=== PATIENT | female | born 1980 | race Caucasian/White ===

== ENCOUNTER 2017-04-23 07:18 | Emergency (ER) | payer MEDICAID, OTHER ==
[~2017-04-23] VITALS: Ht 185.4 cm; Wt 89.8 kg
--- NOTE | 2017-04-23 07:57 | ED Upper Extremity ---
General Chief Complaint: Upper Extremity Stated Complaint: RIGHT HAND PAIN Source: patient History of Present Illness Date Seen by Provider: Apr 23, 2017 Time Seen by Provider: 07:57 Initial Comments C/O PAIN TO RIGHT THUMB X 1 WEEK PT CLAIMS NO KNOWN INJURY NO PARESTHESIAS OR MOTOR DEFICITS NO HISTORY OF SIMILAR PT SEEN AT URGENT CARE IN [place] 1 WEEK AGO AND WAS STARTED ON MELOXICAM. NO XRAYS DONE.--NO IMPROVEMENT, SO CAME HERE HAS NOT ATTEMPTED TO FOLLOW UP WITH PCP FOR THIS PROBLEM PT HAD LEFT SHOULDER SURGERY 03/14/[address] KONG" AT [facility]. HAS FOLLOW UP APPOINTMENT TOMORROW PT STATES SHE IS OUT OF HER "PERCOCET 10'S" X 2 WEEKS PCP: [facility] [place] Allergies and Home Medications Allergies Coded Allergies: No Known Drug Allergies (Unverified , 04/23/17) Home Medications Hydrocodone Bit/Acetaminophen 1 Tab Tab, 1 EACH PO Q4H, #15 Prescribed by: IGNACIA FORD on 04/23/17 0831 [Keppra] , (Reported) [Tegretol] , (Reported) Constitutional: no symptoms reported Musculoskeletal: see HPI Skin: no symptoms reported Psychiatric/Neurological: No Symptoms Reported Past Zwjzmdd-Gxobft-Crywrq Hx Patient Social History Alcohol Use: Denies Use Recreational Drug Use: No Smoking Status: Current Everyday Smoker Recent Foreign Travel: No Contact w/Someone Who Travel: No Surgeries History of Surgeries: Yes (REMOVAL OF "BRAIN TUMOR"--PT STATES WAS FROM ENCEPHALITIS; LEFT SHOULDER SURGERY) Surgeries: Appendectomy, Neurological, Orthopedic Respiratory History of Respiratory Disorde: No Cardiovascular History of Cardiac Disorders: No Neurological History of Neurological Disord: Yes (ENCEPHALITIS AGE 10 WITH BRAIN SURGERY TO REMOVE "TUMOR" --PT STATES WAS ACTUALLY FROM ENCEHPALITIS) Neurological Disorders: Seizure Disorder Genitourinary History of Genitourinary Disor: No Gastrointestinal History of Gastrointestinal Di: No Musculoskeletal History of Musculoskeletal Dis: Yes (LEFT SHOULDER SURGERY) Endocrine History of Endocrine Disorders: No HEENT History of HEENT Disorders: No Cancer History of Cancer: No Psychosocial History of Psychiatric Problem: No Integumentary History of Skin or Integumenta: No Blood Transfusions History of Blood Disorders: No Physical Exam Vital Signs Vital Sign - Last 12Hours 04/23/17 07:46 Temp 98.0 Pulse 80 Resp 18 B/P (MAP) 98/72 (81) Pulse Ox 97 Capillary Refill : General Appearance: WD/WN, no apparent distress Elbow/Forearm: normal inspection Wrist: Yes normal inspection Hand: Right (THUMB), bone tenderness, limited ROM, soft tissue tenderness Neurologic/Tendon: normal sensation, normal motor functions, normal tendon functions 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, no motor/sensory deficits, alert, normal mood/affect, oriented x 3 Skin: normal color, warm/dry Splinting and Joint Reduction : Splint Application: Finger Progress/Results/Core Measures Results/Orders My Orders Orders - IGNACIA FORD DO Hand, Right, 3 Views (04/23/17 07:59) Splint Application Finger (04/23/17 08:18) Vital Signs/I&O Vital Sign - Last 12Hours 04/23/17 04/23/17 07:46 08:35 Temp 98.0 98.0 Pulse 80 80 Resp 18 18 B/P (MAP) 98/72 (81) Pulse Ox 97 97 Diagnostic Imaging Comments XRAYS RIGHT HAND--NON-DISPLACED FX DISTAL PHALANX OF THUMB, PER RADIOLOGIST REPORT @ 0820 Reviewed: Reviewed by Me Departure Impression Impression: Primary Impression: Fracture of thumb, right, closed Disposition: 01 HOME, SELF-CARE Condition: Stable Departure-Patient Inst. Referrals: MARY WU,LOCAL PHYSICIAN (PCP) Primary Care Physician Patient Instructions: [id number], Finger Fracture (DC), SPLINT CARE Add. Discharge Instructions: ICE TO AREA AT 20 MINUTE INTERVALS WEAR SPLINT AT ALL TIMES CONTINUE MELOXICAM FOLLOW UP WITH DR. WU IN 1 WEEK FOR FURTHER CARE All discharge instructions reviewed with patient and/or family. Voiced understanding. Scripts Hydrocodone Bit/Acetaminophen (Hydrocodone/Acetaminophen 5/325mg Tablet) 1 Tab Tab 1 EACH PO Q4H, #15 TAB Prov: IGNACIA FORD DO 04/23/17 IGNACIA FORD DO Apr 23, 2017 07:57
[2017-04-23] MEDS ORDERED: TEGRETOL (08:00)
[2017-04-23] MEDS ORDERED: KEPPRA (08:00)
--- NOTE | 2017-04-23 08:15 | Diagnostic Imaging Report ---
INDICATION: Pain in the right first digit for 1-1/2 weeks. TIME OF EXAM: 8:06 a.m. Three views of the right hand were obtained. There is a lucency identified at the base of the distal phalanx of the thumb, suspicious for a nondisplaced fracture. This is only seen on one view. Proximal phalanx is intact. The first metacarpal is intact. No other abnormalities are identified. IMPRESSION: Findings suggestive of a nondisplaced fracture involving the distal phalanx of the thumb. Dictated by: Dictated on workstation # [id number]
[2017-04-23] MEDS ORDERED: TRAM-42 PO (08:22)
[2017-04-23] MEDS ORDERED: ACHD5005 PO (08:31)
[2017-04-23 08:35] VITALS: BP 98/72
== END 2017-04-23 08:35 | disposition home or self-care (01) ==
LOC: ER 07:21
DX: S62.524A Nondisplaced fracture of distal phalanx of right thumb, initial encounter for closed fracture (principal); G40.909 Epilepsy, unspecified, not intractable, without status epilepticus; F17.210 Nicotine dependence, cigarettes, uncomplicated; Z90.49 Acquired absence of other specified parts of digestive tract; Z98.890 Other specified postprocedural states; X58.XXXA Exposure to other specified factors, initial encounter
CPT/HCPCS: 29130; 73130

== ENCOUNTER 2017-04-29 06:59 | Emergency (ER) | payer MEDICAID ==
[~2017-04-29] VITALS: Ht 172.7 cm; Wt 77.1 kg
[~2017-04-29 06:59] MED LIST: ACHD5005 PO; KEPPRA; TEGRETOL; TRAM-42 PO
[2017-04-29] MEDS ORDERED: ORPHENADRINE 60 MG/2 ML (NORFLEX) AMP IM ONE (07:15)
[2017-04-29] MEDS ORDERED: KETOROLAC 60 MG/2 ML VIAL IM ONE (07:15)
--- NOTE | 2017-04-29 07:27 | ED Back Pain ---
General Chief Complaint: Back Problems Stated Complaint: L SIDE BACK PAIN Nursing Triage Note: c/o left upper back pain. Onset 0600 this morning after standing up and twisting. Nursing Sepsis Screen: No Definite Risk Source of Information: Patient Exam Limitations: No Limitations History of Present Illness Date Seen by Provider: Apr 29, 2017 Time Seen by Provider: 07:00 Initial Comments This 36-year-old young lady presents to the emergency room with sudden onset of pain in the left upper back medial to the scapula. It started upon standing from a sitting position. She had left shoulder surgery on March 14. She took hydrocodone this morning. This was her last dose from a prescription she received for a thumb fracture on April 23. Allergies and Home Medications Allergies Coded Allergies: No Known Drug Allergies (Unverified , 04/23/17) Home Medications Hydrocodone Bit/Acetaminophen 1 Tab Tab, 1 EACH PO Q4H, #15 Prescribed by: IGNACIA FORD on 04/23/17 0831 Hydrocodone/Acetaminophen 1 Each Tablet, 1 EACH PO QID PRN for PAIN-MODERATE TO SEVERE, #10 Prescribed by: CAROLINE PAYNE on 04/29/17 0803 [Keppra] , (Reported) [Tegretol] , (Reported) Constitutional: no symptoms reported EENTM: no symptoms reported Respiratory: no symptoms reported Cardiovascular: no symptoms reported Gastrointestinal: no symptoms reported Genitourinary: no symptoms reported : No Control/STD Prophylaxis: Other (hysterectomy) Musculoskeletal: see HPI Skin: no symptoms reported Psychiatric/Neurological: No Symptoms Reported Past Xmlusiz-Quwygt-Yowjyc Hx Patient Social History Recent Foreign Travel: No Contact w/Someone Who Travel: No Recent Infectious Disease Expo: No Surgeries History of Surgeries: Yes Surgeries: Appendectomy, Neurological, Orthopedic Respiratory History of Respiratory Disorde: No Cardiovascular History of Cardiac Disorders: No Neurological History of Neurological Disord: Yes Neurological Disorders: Seizure Disorder 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 Genitourinary History of Genitourinary Disor: No Gastrointestinal History of Gastrointestinal Di: No Musculoskeletal History of Musculoskeletal Dis: Yes (LEFT SHOULDER SURGERY) Musculoskeletal Disorders: Fractures (right thumb) Endocrine History of Endocrine Disorders: No HEENT History of HEENT Disorders: No Cancer History of Cancer: No Cancer: Ovarian Psychosocial History of Psychiatric Problem: No Integumentary History of Skin or Integumenta: No Blood Transfusions History of Blood Disorders: No Physical Exam Vital Signs Vital Sign - Last 12Hours 04/29/17 07:16 Temp 98.1 Pulse 86 Resp 16 B/P (MAP) 145/96 (112) Pulse Ox 96 Capillary Refill : Less Than 3 Seconds General Appearance: No Apparent Distress, Moderate Distress (crying) HEENT: PERRL/EOMI, Normal ENT Inspection Cardiovascular: Regular Rate, Rhythm, No Edema, No Murmur Respiratory: Lungs Clear, Normal Breath Sounds, No Accessory Muscle Use, No Respiratory Distress Back: Other (tenderness in the musculature medial to the left scapula) Extremity: Normal Inspection, No Pedal Edema, Other (splint on the right hand/ wrist. 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 Skin: Normal Color, Warm/Dry Progress/Results/Core Measures Results/Orders Lab Results Laboratory Tests Test 04/29/17 07:30 Range/Units Urine Color YELLOW Urine Clarity SLIGHTLY CLOUDY Urine pH 5 5-9 Urine Specific [place] 1.020 1.016-1.022 Urine Protein NEGATIVE NEGATIVE Urine Glucose (UA) NEGATIVE NEGATIVE Urine Ketones NEGATIVE NEGATIVE Urine Nitrite NEGATIVE NEGATIVE Urine Bilirubin NEGATIVE NEGATIVE Urine Urobilinogen NORMAL NORMAL MG/DL Urine Leukocyte Esterase 1+ H NEGATIVE Urine RBC (Auto) 1+ H NEGATIVE Urine RBC RARE /HPF Urine WBC RARE /HPF Urine Squamous Epithelial Cells TNTC H /HPF Urine Crystals NONE /LPF Urine Bacteria NEGATIVE /HPF Urine Casts NONE /LPF Urine Mucus NEGATIVE /LPF Urine Culture Indicated NO My Orders Orders - CAROLINE SAINZ MD Ua Culture If Indicated (04/29/17 07:01) Ketorolac Injection (Toradol Injection) (04/29/17 07:15) Orphenadrine Injection (Norflex Injectio (04/29/17 07:15) Oxycodone/Apap 5/325mg Tablet (Percocet (04/29/17 08:00) Prednisone Tablet (Deltasone Tablet) (04/29/17 08:00) Fentanyl Injection (Sublimaze Injection (04/29/17 08:00) Medications Given in ED Current Medications Medications Dose Ordered Sig/Abi Route Start Time Stop Time Status Last Admin Dose Admin Fentanyl Citrate 100 mcg ONCE ONCE IM 04/29/17 08:00 04/29/17 08:01 DC 04/29/17 08:04 100 MCG Ketorolac Tromethamine 60 mg ONCE ONCE IM 04/29/17 07:15 04/29/17 07:16 DC 04/29/17 07:28 60 MG Orphenadrine Citrate 60 mg ONCE ONCE IM 04/29/17 07:15 04/29/17 07:16 DC 04/29/17 07:27 60 MG Oxycodone/ Acetaminophen 1 tab ONCE ONCE PO 04/29/17 08:00 04/29/17 08:01 DC 04/29/17 08:05 1 TAB Prednisone 40 mg ONCE ONCE PO 04/29/17 08:00 04/29/17 08:01 DC 04/29/17 08:07 40 MG Vital Signs/I&O Vital Sign - Last 12Hours 04/29/17 04/29/17 04/29/17 04/29/17 07:16 07:27 07:28 08:04 Temp 98.1 98.1 98.1 98.1 Pulse 86 Resp 16 B/P (MAP) 145/96 (112) Pulse Ox 96 04/29/17 08:05 Temp 98.1 Blood Pressure Mean: 112 Progress Note #1: Time: 07:27 Progress Note Patient received Toradol and Norflex injections. Progress Note #2: Time: 07:58 Progress Note Patient is getting no relief from Toradol and Norflex. For additional treatment of pain she is being given a fentanyl injection and a Percocet tablet. She's also being given a single dose of steroids. Further use of steroids is discouraged due to the right thumb fracture. Progress Note #3: Time: 08:54 Progress Note Patient had good improvement in symptoms and is now resting comfortably. Departure Impression Impression: Primary Impression: Muscle spasm of back Additional Impression: Upper back pain Disposition: 01 HOME, SELF-CARE Condition: Improved Departure-Patient Inst. Referrals: NO,LOCAL PHYSICIAN (PCP/Family) Primary Care Physician Patient Instructions: Muscle Spasms (DC) Add. Discharge Instructions: Drink plenty of clear liquids. For primary pain control use ibuprofen up to 600 mg every 6 hours as needed over the next 3 days. Discuss further use of ibuprofen with your orthopedic doctor at your follow-up appointment. Use of ibuprofen is sometimes discouraged with fractures as it may delay bone healing. Add hydrocodone for pain not controlled by ibuprofen. You may use gentle heat and/or ice in 20 minute intervals to help relax the muscle. You may use njhx-bjx-iacspeb products such as Biofreeze or Icy Hot as well. Return to care if symptoms worsen. All discharge instructions reviewed with patient and/or family. Voiced understanding. Scripts Hydrocodone/Acetaminophen (Hydrocodone-Acetamin 5-325 mg) 1 Each Tablet 1 EACH PO QID Y for PAIN-MODERATE TO SEVERE, #10 TAB Prov: CAROLINE SAINZ MD 04/29/17 CAROLINE SAINZ MD Apr 29, 2017 07:27
[2017-04-29 07:56] LABS: BILIRUBIN,URINE NEGATIVE (NEGATIVE); CLARITY,URINE SLIGHTLY CLOUDY; COLOR,URINE YELLOW; GLUCOSE, URINE (UA) NEGATIVE (NEGATIVE); KETONES,URINE NEGATIVE (NEGATIVE); LEUKOCYTE ESTERASE ,URINE 1+ (NEGATIVE); NITRITE,URINE NEGATIVE (NEGATIVE); PH,URINE 5 (5-9); PROTEIN,URINE NEGATIVE (NEGATIVE); UROBILINOGEN,URINE NORMAL (NORMAL)
[2017-04-29] MEDS ORDERED: fentaNYL INJECTION 100 MCG/2 ML AMP IM ONE (08:00)
[2017-04-29] MEDS ORDERED: predniSONE 20 MG TAB PO ONE (08:00)
[2017-04-29] MEDS ORDERED: oxyCODONE/APAP 5/325MG (PERCOCET 5) TABLET PO ONE (08:00)
[2017-04-29 08:03] LABS: BACTERIA,URINE NEGATIVE /HPF; RBC,URINE RARE /HPF; SQUAMOUS EPITHELIAL CELL,UR TNTC /HPF; WBC,URINE RARE /HPF
[2017-04-29] MEDS ORDERED: HYDR-3812 PO (08:03)
[2017-04-29 08:53] VITALS: BP 142/90
== END 2017-04-29 08:53 | disposition home or self-care (01) ==
LOC: EDUNIT# 06:59 → ER 07:00
DX: M62.830 Muscle spasm of back (principal); M54.6 Pain in thoracic spine; G40.909 Epilepsy, unspecified, not intractable, without status epilepticus; Z85.43 Personal history of malignant neoplasm of ovary; Z90.710 Acquired absence of both cervix and uterus; Z90.49 Acquired absence of other specified parts of digestive tract; X50.1XXA Overexertion from prolonged static or awkward postures, initial encounter
CPT/HCPCS: 81000; 96372; 99284

== ENCOUNTER 2017-07-19 13:28 | Emergency (ER) | payer MEDICAID ==
[~2017-07-19] VITALS: Ht 185.4 cm; Wt 92.5 kg
[~2017-07-19 13:28] MED LIST changes: +HYDR-3812 PO
[2017-07-19 14:14] LABS: BASOPHILS % (AUTO) 0 % (0-10); EOSINOPHILS # (AUTO) 0.3 10^3/uL (0.0-0.3); EOSINOPHILS % (AUTO) 4 % (0-10); HEMATOCRIT 41 % (35-52); HEMOGLOBIN 13.7 G/DL (11.5-16.0); LYMPHOCYTES # (AUTO) 2.5 X 10^3 (1.0-4.0); LYMPHOCYTES % (AUTO) 35 % (12-44); MEAN CORPUSCULAR HEMOGLOBIN 31 PG (25-34); MEAN CORPUSCULAR HGB CONC 34 G/DL (32-36); MEAN CORPUSCULAR VOLUME 93 FL (80-99); MEAN PLATELET VOLUME 10.1 FL (7.4-10.4); MONOCYTES # (AUTO) 0.7 X 10^3 (0.0-1.0); MONOCYTES % (AUTO) 10 % (0-12); NEUTROPHILS # (AUTO) 3.6 X 10^3 (1.8-7.8); NEUTROPHILS % (AUTO) 51 % (42-75); PLATELET COUNT 302 10^3/uL (130-400); RED BLOOD COUNT 4.42 10^6/uL (4.35-5.85); RED CELL DISTRIBUTION WIDTH 14.4 % (10.0-14.5); WHITE BLOOD COUNT 7.1 10^3/uL (4.3-11.0)
[2017-07-19 14:28] LABS: ALANINE AMINOTRANSFERASE 19 U/L (0-55); ALBUMIN 4.5 GM/DL (3.2-4.5); ALKALINE PHOSPHATASE 117 U/L (40-136); BILIRUBIN,TOTAL 0.3 MG/DL (0.1-1.0); BUN/CREATININE RATIO 20; CALCIUM 9.8 MG/DL (8.5-10.1); CARBON DIOXIDE 25 MMOL/L (21-32); CHLORIDE 107 MMOL/L (98-107); CREATININE SERUM 0.83 MG/DL (0.60-1.30); GFR ESTIMATED > 60; GLUCOSE 102 MG/DL (70-105); POTASSIUM 4.4 MMOL/L (3.6-5.0); SODIUM 141 MMOL/L (135-145)
--- NOTE | 2017-07-19 14:28 | ED Neurological Problem ---
General Chief Complaint: Neurological Problems Stated Complaint: SEIZURE LIKE ACTIVITY Nursing Triage Note: PT TO ROOM 8 PT CO OF INCREASED IN SEIZURES, PAST COUPLE DAYS, HAS MIGRAINE TORO, AND INJURED L SHOULDER DURING SEIZURE. Nursing Sepsis Screen: No Definite Risk History of Present Illness Date Seen by Provider: Jul 19, 2017 Time Seen by Provider: 14:00 Initial Comments Patient is a 37-year-old female who presents to the emergency room with complaints of increased seizures the last 3 days, pain behind her left eye, and left shoulder pain. She reports history of seizures and has had one seizure each day for the last 3 days and reports waking up on her left shoulder today which she has recently had an operation on. She takes Keppra and Tegretol for her seizures and reports not missing any doses but doesn't need a refill on both of these medications. Associated Symptoms: denies symptoms Allergies and Home Medications Allergies Coded Allergies: No Known Drug Allergies (Unverified , 04/23/17) Patient Home Medication List Home Medication List Reviewed: Yes Review of Systems Constitutional: no symptoms reported, see HPI Eyes: No Symptoms Reported, See HPI Ears, Nose, Mouth, Throat: no symptoms reported, see HPI Respiratory: no symptoms reported, see HPI Cardiovascular: no symptoms reported, see HPI Gastrointestinal: no symptoms reported, see HPI Genitourinary: no symptoms reported, see HPI Musculoskeletal: joint pain Skin: no symptoms reported, see HPI Psychiatric/Neurological: No Symptoms Reported Endocrine: No Symptoms Reported, See HPI Hematologic/Lymphatic: No Symptoms Reported, See HPI Past Bqisuci-Zgbjfp-Jmueao Hx Patient Social History Alcohol Use: Denies Use Recreational Drug Use: Yes (POT) Drug of Choice: marijuana Smoking Status: Current Everyday Smoker Type Used: Cigarettes Recent Foreign Travel: No Contact w/Someone Who Travel: No Recent Infectious Disease Expo: No Physical Abuse: No Sexual Abuse: No Past Medical History Surgeries: Yes Appendectomy, Hysterectomy, Neurological, Orthopedic Respiratory: No Cardiac: No Neurological: Yes 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, 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 Genitourinary: No Gastrointestinal: No Musculoskeletal: Yes (LEFT SHOULDER SURGERY) Fractures Endocrine: No HEENT: No Cancer: No Ovarian Psychosocial: No Nursing Suicide Risk Score: 0 Integumentary: No Blood Disorders: No Physical Exam Vital Signs Vital Signs - First Documented 07/19/17 13:45 Temp 97.4 Pulse 77 Resp 18 B/P (MAP) 138/96 (110) Pulse Ox 95 Capillary Refill : Less Than 3 Seconds General Appearance: WD/WN, no apparent distress HEENT: PERRL/EOMI, normal ENT inspection Neck: non-tender, full range of motion Respiratory: chest non-tender, lungs clear, normal breath sounds, no respiratory distress, no accessory muscle use Cardiovascular: normal peripheral pulses, regular rate, rhythm, no edema, no gallop, no JVD, no murmur Gastrointestinal: normal bowel sounds, non tender, soft, no organomegaly, no pulsatile mass Back: normal inspection, no CVA tenderness, no vertebral tenderness Extremities: non-tender, normal inspection, no pedal edema, no calf tenderness , other (Pain with range of motion and the left shoulder.) Neurologic/Psychiatric: no motor/sensory deficits, alert, normal mood/affect, oriented x 3 Crainal Nerves: normal hearing, normal speech Coordination/Gait: normal finger to nose, normal gait Motor/Sensory: no motor deficit, no sensory deficit, no pronator drift Skin: normal color, warm/dry Progress/Results/Core Measures Lab Results Laboratory Tests Test 07/19/17 13:50 07/19/17 16:18 Range/Units White Blood Count 7.1 4.3-11.0 10^3/uL Red Blood Count 4.42 4.35-5.85 10^6/uL Hemoglobin 13.7 11.5-16.0 G/DL Hematocrit 41 35-52 % Mean Corpuscular Volume 93 80-99 FL Mean Corpuscular Hemoglobin 31 25-34 PG Mean Corpuscular Hemoglobin Concent 34 32-36 G/DL Red Cell Distribution Width 14.4 10.0-14.5 % Platelet Count 302 130-400 10^3/uL Mean Platelet Volume 10.1 7.4-10.4 FL Neutrophils (%) (Auto) 51 42-75 % Lymphocytes (%) (Auto) 35 12-44 % Monocytes (%) (Auto) 10 0-12 % Eosinophils (%) (Auto) 4 0-10 % Basophils (%) (Auto) 0 0-10 % Neutrophils # (Auto) 3.6 1.8-7.8 X 10^3 Lymphocytes # (Auto) 2.5 1.0-4.0 X 10^3 Monocytes # (Auto) 0.7 0.0-1.0 X 10^3 Eosinophils # (Auto) 0.3 0.0-0.3 10^3/uL Basophils # (Auto) 0.0 0.0-0.1 10^3/uL Neutrophils % (Manual) 61 % Lymphocytes % (Manual) 32 % Monocytes % (Manual) 4 % Eosinophils % (Manual) 3 % Blood Morphology Comment NORMAL Sodium Level 141 135-145 MMOL/L Potassium Level 4.4 3.6-5.0 MMOL/L Chloride Level 107 98-107 MMOL/L Carbon Dioxide Level 25 21-32 MMOL/L Anion Gap 9 5-14 MMOL/L Blood Urea Nitrogen 17 7-18 MG/DL Creatinine 0.83 0.60-1.30 MG/DL Estimat Glomerular Filtration Rate > 60 BUN/Creatinine Ratio 20 Glucose Level 102 70-105 MG/DL Calcium Level 9.8 8.5-10.1 MG/DL Total Bilirubin 0.3 0.1-1.0 MG/DL Aspartate Amino Transf (AST/SGOT) 19 5-34 U/L Alanine Aminotransferase (ALT/SGPT) 19 0-55 U/L Alkaline Phosphatase 117 40-136 U/L Total Protein 8.0 6.4-8.2 GM/DL Albumin 4.5 3.2-4.5 GM/DL Serum Test, Qualitative NEGATIVE NEGATIVE Carbamazepine (Tegretol) Level 4.7 4.0-12.0 UG/ML Urine Color YELLOW Urine Clarity CLEAR Urine pH 5 5-9 Urine Specific [place] 1.020 1.016-1.022 Urine Protein NEGATIVE NEGATIVE Urine Glucose (UA) NEGATIVE NEGATIVE Urine Ketones NEGATIVE NEGATIVE Urine Nitrite NEGATIVE NEGATIVE Urine Bilirubin NEGATIVE NEGATIVE Urine Urobilinogen NORMAL NORMAL MG/DL Urine Leukocyte Esterase 1+ H NEGATIVE Urine RBC (Auto) NEGATIVE NEGATIVE Urine RBC 0-2 /HPF Urine WBC RARE /HPF Urine Squamous Epithelial Cells 0-2 /HPF Urine Crystals NONE /LPF Urine Bacteria TRACE /HPF Urine Casts NONE /LPF Urine Mucus SMALL H /LPF Urine Culture Indicated NO Urine Opiates Screen NEGATIVE NEGATIVE Urine Oxycodone Screen NEGATIVE NEGATIVE Urine Methadone Screen NEGATIVE NEGATIVE Urine Propoxyphene Screen NEGATIVE NEGATIVE Urine Barbiturates Screen NEGATIVE NEGATIVE Ur Tricyclic Antidepressants Screen NEGATIVE NEGATIVE Urine Phencyclidine Screen NEGATIVE NEGATIVE Urine Amphetamines Screen NEGATIVE NEGATIVE Urine Methamphetamines Screen NEGATIVE NEGATIVE Urine Benzodiazepines Screen NEGATIVE NEGATIVE Urine Cocaine Screen NEGATIVE NEGATIVE Urine Cannabinoids Screen POSITIVE H NEGATIVE My Orders Orders - KAMILAH HINES APRN Ct Head Wo (07/19/17 14:03) Shoulder, Left, 3 Views (07/19/17 14:03) Ua Culture If Indicated (07/19/17 14:03) Drug Screen Stat (Urine) (07/19/17 14:03) Carbamazepine (Tegretol) (07/19/17 14:03) Cbc And Manual Diff (07/19/17 14:03) Comprehensive Metabolic Panel (07/19/17 14:03) Hcg,Qualitative Serum (07/19/17 14:07) Ketorolac Injection (Toradol Injection) (07/19/17 15:00) Diphenhydramine Injection (Benadryl Inje (07/19/17 15:00) Ns Iv 1000 Ml (Sodium Chloride 0.9%) (07/19/17 15:00) Diphenhydramine Injection (Benadryl Inje (07/19/17 14:49) Ns Iv 1000 Ml (Sodium Chloride 0.9%) (07/19/17 14:49) Ketorolac Injection (Toradol Injection) (07/19/17 14:49) Acetaminophen Tablet (Tylenol Tablet) (07/19/17 17:00) Medications Given in ED Current Medications Medications Dose Ordered Sig/Abi Route Start Time Stop Time Status Last Admin Dose Admin Diphenhydramine HCl 25 mg ONCE ONCE IVP 07/19/17 15:00 07/19/17 15:01 DC 07/19/17 15:06 25 MG Ketorolac Tromethamine 30 mg ONCE ONCE IVP 07/19/17 15:00 07/19/17 15:01 DC 07/19/17 15:04 30 MG Vital Signs/I&O 07/19/17 13:45 Temp 97.4 Pulse 77 Resp 18 B/P (MAP) 138/96 (110) Pulse Ox 95 Blood Pressure Mean: 110 Progress Note : Progress Note On discharge from the emergency room patient refused Tylenol for her headache and she ripped out her IV, cursed at staff saying " I am fucking leaving" and stormed out of the emergency room refusing to sign discharge papers. Departure Impression Primary Impression: Seizure disorder Additional Impression: Headache Disposition: 01 HOME, SELF-CARE Condition: Stable Departure-Patient Inst. Decision time for Depature: 16:50 Referrals: NO,LOCAL PHYSICIAN (PCP/Family) Primary Care Physician Patient Instructions: Headache, Adult (DC), Seizures, Adult (DC) KAMILAH HINES APRN Jul 19, 2017 14:28
[2017-07-19 14:34] LABS: CARBAMAZEPINE (TEGRETOL) 4.7 UG/ML (4.0-12.0); EOSINOPHILS % (MANUAL) 3 %; LYMPHOCYTES % (MANUAL) 32 %; MONOCYTES % (MANUAL) 4 %; NEUTROPHILS % (MANUAL) 61 %; RBC MORPH NORMAL
--- NOTE | 2017-07-19 14:46 | Diagnostic Imaging Report ---
INDICATION: History of seizure, pain behind right eye. Noncontrast brain CT is performed. There is no previous study for comparison. There are encephalomalacic changes in the left frontal lobe which appear chronic. We do not have prior studies for comparison. There is no focal abnormality seen elsewhere in the brain parenchyma. The ventricles are normal in size. There is no subdural or epidural collection. There is no overt intraorbital mass. Bony structures demonstrate no acute abnormality. There is some thinning of the frontal cortex in the left frontal region, which may be due to chronic change or previous surgery. IMPRESSION: No acute intracranial process. Chronic of encephalomalacic changes in left frontal lobe as described above. Dictated by: Dictated on workstation # [id number]
[2017-07-19] MEDS ORDERED: NS IV 1000 ML 1,000 ML ONE (14:49)
[2017-07-19] MEDS ORDERED: KETOROLAC 30 MG/ML VIAL ONE (14:49)
[2017-07-19] MEDS ORDERED: diphenhydrAMINE 50 MG/ML INJ (BENADRYL) ONE (14:49)
[2017-07-19] MEDS ORDERED: NS IV 1000 ML 1,000 ML IV SCH (15:00)
[2017-07-19] MEDS ORDERED: diphenhydrAMINE 50 MG/ML INJ (BENADRYL) IVP ONE (15:00)
[2017-07-19] MEDS ORDERED: KETOROLAC 30 MG/ML VIAL IVP ONE (15:00)
--- NOTE | 2017-07-19 15:05 | Diagnostic Imaging Report ---
INDICATION: Left shoulder pain. AP, oblique, and transcapular views of left shoulder are obtained. No fracture or acute bony abnormality seen. There is no dislocation. Joint spaces are unremarkable. IMPRESSION: Negative left shoulder. Dictated by: Dictated on workstation # [id number]
[2017-07-19 16:27] LABS: BILIRUBIN,URINE NEGATIVE (NEGATIVE); CLARITY,URINE CLEAR; COLOR,URINE YELLOW; GLUCOSE, URINE (UA) NEGATIVE (NEGATIVE); KETONES,URINE NEGATIVE (NEGATIVE); LEUKOCYTE ESTERASE ,URINE 1+ (NEGATIVE); NITRITE,URINE NEGATIVE (NEGATIVE); PH,URINE 5 (5-9); PROTEIN,URINE NEGATIVE (NEGATIVE); UROBILINOGEN,URINE NORMAL (NORMAL)
[2017-07-19 16:37] LABS: RBC,URINE 0-2 /HPF
[2017-07-19 16:38] LABS: BACTERIA,URINE TRACE /HPF; SQUAMOUS EPITHELIAL CELL,UR 0-2 /HPF; WBC,URINE RARE /HPF
[2017-07-19 16:40] LABS: AMPHETAMINE SCREEN, URINE NEGATIVE (NEGATIVE); BARBITURATE SCREEN URINE NEGATIVE (NEGATIVE); BENZODIAZEPINES SCREEN URINE NEGATIVE (NEGATIVE); CANNABINOID SCREEN, URINE POSITIVE (NEGATIVE); COCAINE SCREEN URINE NEGATIVE (NEGATIVE); METHADONE STAT NEGATIVE (NEGATIVE); METHAMPHETAMINE SCREEN URINE S NEGATIVE (NEGATIVE); OPIATE SCREEN URINE NEGATIVE (NEGATIVE); OXYCODONE STAT NEGATIVE (NEGATIVE); PROPOXYPHENE STAT NEGATIVE (NEGATIVE); TRICYCLIC ANTIDEPRESSANTS SCRE NEGATIVE (NEGATIVE)
[2017-07-19 16:59] VITALS: BP 138/96
[2017-07-19] MEDS ORDERED: ACETAMINOPHEN 500 MG TAB (TYLENOL) PO ONE (17:00)
== END 2017-07-19 16:59 | disposition home or self-care (01) ==
LOC: EDUNIT# 13:28 → ER 13:30
DX: G40.909 Epilepsy, unspecified, not intractable, without status epilepticus (principal); R51 Headache; F12.10 Cannabis abuse, uncomplicated; F17.210 Nicotine dependence, cigarettes, uncomplicated; Z90.49 Acquired absence of other specified parts of digestive tract; Z90.710 Acquired absence of both cervix and uterus
CPT/HCPCS: 36415; 70450; 73030; 80053; 80156; 80306; 81000; 84703; 85007; 85027; 96361; 96374; 96375

== ENCOUNTER 2017-12-02 09:32 | Emergency (ER) | payer MEDICAID ==
[~2017-12-02] VITALS: Ht 185.4 cm; Wt 97.1 kg
--- OUTSIDE RECORDS SUMMARY | 2017-12-02 09:37 | XMS REPORT ---
Author Author LOUIS BAKER Organization [facility] Address [address] [place] [address] Care Team Providers Care Base Cloth Inspector Name Role Phone LOUIS BAKER Unavailable PROBLEMS Type Condition ICD9-CM Code [id number] Code Onset Dates Condition Status SNOMED Code Problem Seizure disorder G40.909 Active 387935053 Problem Moderate episode of recurrent major depressive disorder F33.1 Active 614535821 Problem Opioid withdrawal F11.23 Active [id number] Problem Opioid use disorder, moderate, dependence F11.20 Active [id number] ALLERGIES No Information ENCOUNTERS Encounter Location Date Diagnosis [facility] [id number] [place] [id number] July, Opioid use disorder, moderate, dependence F11.20 and Moderate episode of recurrent major depressive disorder F33.1 [facility] [id number] [place] [phone] Jun, [facility] [id number] [place] [phone] Jun, Opioid use disorder, moderate, dependence F11.20 ; Moderate episode of recurrent major depressive disorder F33.1 ; Seizure disorder G40.909 and Opioid withdrawal F11.23 IMMUNIZATIONS No Known Immunizations SOCIAL HISTORY Never Assessed REASON FOR VISIT ATS Brief PLAN OF CARE VITAL SIGNS MEDICATIONS No Known Medications RESULTS No Results PROCEDURES Procedure Date Ordered Result Body Site Alcohol and/or drug services July 29, 2017 INSTRUCTIONS MEDICATIONS ADMINISTERED No Known Medications MEDICAL (GENERAL) HISTORY Type Description Date Medical History seizure disorder; last seizure was 3 weeks ago. Pt had a brain tumor at age 10 and scar tissue causes sezures Medical History ovarian cancer at age 32; in remission Surgical History brain tumor 1990 Surgical History appendectomy 1994 Surgical History hysterectomy 2012 Surgical History left shoulder surgery 2016 Surgical History VNS replaced 2013 Surgical History VNS removed 2018 Hospitalization History surgeries only
--- OUTSIDE RECORDS SUMMARY | 2017-12-02 09:37 | XMS REPORT ---
Author Author LOUIS BAKER Organization [facility] Address [address] [place] [address] Care Team Providers Care Assistant Quality Manager Name Role Phone LOUIS BAKER Unavailable PROBLEMS Type Condition ICD9-CM Code [id number] Code Onset Dates Condition Status SNOMED Code Problem Seizure disorder G40.909 Active 328287046 Problem Moderate episode of recurrent major depressive disorder F33.1 Active 683243936 Problem Opioid withdrawal F11.23 Active 64782144 Problem Opioid use disorder, moderate, dependence F11.20 Active [id number] ALLERGIES No Known Allergies ENCOUNTERS Encounter Location Date Diagnosis [place] [address] [phone] July, Opioid use disorder, moderate, dependence F11.20 and Moderate episode of recurrent major depressive disorder F33.1 [place] [id number] [place] [id number] [place] [phone] Jun, [place] [address] [place] [id number] [place] [phone] Jun, Opioid use disorder, moderate, dependence F11.20 ; Moderate episode of recurrent major depressive disorder F33.1 ; Seizure disorder G40.909 and Opioid withdrawal F11.23 IMMUNIZATIONS Vaccine Route Administration Date Status ZOFRAN (IM) 2 MG/ML (PER 1 MG) 40 MG/20 ML IM Intramuscular July 29, 2017 Administered SOCIAL HISTORY Never Assessed REASON FOR VISIT MAT Assessment, COWS 9, pt was prescribed morphine and dilauded and had no issues but a couple years ago was given fentanyl IV after a seizure and thats when she started liking it PLAN OF CARE Activity Details Follow Up 1 Week Reason:MAT VITAL SIGNS Height 73 in 2017-07-29 Weight 206.3 lbs 2017-07-29 Temperature 98.2 degrees Fahrenheit 2017-07-29 Heart Rate 84 bpm 2017-07-29 Respiratory Rate 18 2017-07-29 BMI 27.22 kg/m2 2017-07-29 Blood pressure systolic 130 mmHg 2017-07-29 Blood pressure diastolic 86 mmHg 2017-07-29 MEDICATIONS Medication Instructions Dosage Frequency Start Date End Date Duration Status Clonidine HCl 0.1 MG Orally twice a day as needed for withdrawal symptoms 1 tablet Jun, 07 days Active Hydrocodone-Acetaminophen 5-325 MG Orally every 6 hrs 1 tablet as needed 6h Active Remeron 15 mg Orally Once a day 1 tablet at bedtime 24h Jun, day(s) Active Keppra 1000 MG Orally Twice a day 1 tablet 12h Active Zofran 4 MG Orally 3 times a day 1 tablet 8h Jun, days Active Tegretol 200 MG Orally Twice a day 1 tablet 12h Active RESULTS No Results PROCEDURES Procedure Date Ordered Result Body Site ZOFRAN (IM) 2 MG/ML (PER 1 MG) 40 MG/20 ML July 29, 2017 THER/PROPH/DIAG INJ, SC/IM July 29, 2017 INSTRUCTIONS MEDICATIONS ADMINISTERED No [...]
--- OUTSIDE RECORDS SUMMARY | 2017-12-02 09:37 | XMS REPORT ---
Author Author LOUIS BAKER Organization [facility] Address [address] [place] [address] Care Team Providers Care Chamber Worker Name Role Phone LOUIS BAKER Unavailable PROBLEMS Type Condition ICD9-CM Code [id number] Code Onset Dates Condition Status SNOMED Code Problem Seizure disorder G40.909 Active 883414786 Problem Moderate episode of recurrent major depressive disorder F33.1 Active 601603949 Problem Opioid withdrawal F11.23 Active 09520975 Problem Opioid use disorder, moderate, dependence F11.20 Active [id number] ALLERGIES No Known Allergies ENCOUNTERS Encounter Location Date Diagnosis [facility] [address] [place] [id number] [place] [phone] July, Opioid use disorder, moderate, dependence F11.20 and Moderate episode of recurrent major depressive disorder F33.1 [facility] [address] [place] [id number] [place] [phone] Jun, [facility] [address] [place] [id number] [place] [phone] Jun, Opioid use disorder, moderate, dependence F11.20 ; Moderate episode of recurrent major depressive disorder F33.1 ; Seizure disorder G40.909 and Opioid withdrawal F11.23 IMMUNIZATIONS No Known Immunizations SOCIAL HISTORY Never Assessed REASON FOR VISIT MAT F/U, pt reports not having opiates since before seeing us last saturday, pt reports she is very depressed PLAN OF CARE Activity Details Follow Up 2 Weeks Reason:MAT VITAL SIGNS Height 73 in 2017-08-05 Weight 214.4 lbs 2017-08-05 Temperature 98.7 degrees Fahrenheit 2017-08-05 Heart Rate 88 bpm 2017-08-05 Respiratory Rate 20 2017-08-05 BMI 28.28 kg/m2 2017-08-05 Blood pressure systolic 138 mmHg 2017-08-05 Blood pressure diastolic 86 mmHg 2017-08-05 MEDICATIONS Medication Instructions Dosage Frequency Start Date End Date Duration Status Remeron 15 mg Orally Once a day 1 tablet at bedtime 24h Jun, 30 day(s) Active Zofran 4 MG Orally 3 times a day 1 tablet 8h Jun, 07 days Active Hydrocodone-Acetaminophen 5-325 MG Orally every 6 hrs 1 tablet as needed 6h Not-Taking Tegretol 200 MG Orally Twice a day 1 tablet 12h Active Naltrexone HCl 50 mg Orally Once a day; start 0.5 tab daily x 4 days 1 tablet July, Sep, 30 day(s) Active Zoloft 50 mg Orally Once a day; increase to 2 tabs after 2 weeks 1 tablet July, 30 day(s) Active Clonidine HCl 0.1 MG Orally twice a day as needed for withdrawal symptoms 1 tablet Jun, 07 days Not-Taking Keppra 1000 MG Orally Twice a day 1 tablet 12h Active RESULTS Name Result Date Reference Range URINE DRUG SCREEN (IN HOUSE) 2017-08-05 Lot # [id number] Exp date 08/2018 Control + COCAINE neg AMPH neg MTD neg THC + OPIATE neg BENZO neg PCP neg BAR neg OXY neg MAMP neg BUP neg MDMA neg TCA n/a PROCEDURES Procedure Date Ordered Result Body Site DRUG TEST PRSMV DIR OPT OBS August 05, 2017 INSTRUCTIONS MEDICATIONS ADMINISTERED No Known Medications [...] VNS replaced 2013 Surgical History VNS removed 2017 Hospitalization History surgeries only
--- OUTSIDE RECORDS SUMMARY | 2017-12-02 09:38 | XMS REPORT | Continuity of Care Document ---
Demographics Preferred Language Unknown Marital Status Unknown Yarsanism Affiliation Unknown Race Unknown Ethnic Group Unknown Author Author [facility] Organization [facility] Address Unknown Phone Unavailable Allergies Active Description Code Type Severity Reaction Onset Reported/Identified Relationship to Patient Clinical Status Yes No Known Drug Allergies [id number] Drug Allergy Unknown N/A 04/23/2017 Medications There is no data. Problems Date Dx Coded Attending Type Code Diagnosis Diagnosed By 04/23/2017 IGNACIA FORD DO, Ot F17.210 NICOTINE DEPENDENCE, CIGARETTES, UNCOMPL 04/23/2017 IGNACIA FORD DO, Ot G40.909 EPILEPSY, UNSP, NOT INTRACTABLE, WITHOUT 04/23/2017 IGNACIA FORD DO Ot M79.644 PAIN IN RIGHT FINGER(S) 04/23/2017 IGNACIA FORD DO Ot S62.524A NONDISP FX OF DISTAL PHALANX OF RIGHT TH 04/23/2017 IGNACIA FORD DO Ot X58.XXXA EXPOSURE TO OTHER SPECIFIED FACTORS, INI 04/23/2017 IGNACIA FORD DO Ot Z90.49 ACQUIRED ABSENCE OF OTHER SPECIFIED PART 04/23/2017 IGNACIA FORD DO Ot Z98.890 OTHER SPECIFIED POSTPROCEDURAL STATES 04/29/2017 CAROLINE SAINZ MD, Ot G40.909 EPILEPSY, UNSP, NOT INTRACTABLE, WITHOUT 04/29/2017 CAROLINE SAINZ MD Ot M54.6 PAIN IN THORACIC SPINE 04/29/2017 CAROLINE SAINZ MD Ot M62.830 MUSCLE SPASM OF BACK 04/29/2017 CAROLINE SAINZ MD Ot X50.1XXA OVEREXERTION FROM PROLONGED STATIC OR AW 04/29/2017 CAROLINE SAINZ MD Ot Z85.43 PERSONAL HISTORY OF MALIGNANT NEOPLASM O 04/29/2017 CAROLINE SAINZ MD, Ot Z90.49 ACQUIRED ABSENCE OF OTHER SPECIFIED PART 04/29/2017 CAROLINE SAINZ MD Ot Z90.710 ACQUIRED ABSENCE OF BOTH CERVIX AND UTER 05/01/2017 BRUEGGEMANN MD, CAROLINE T Ot G40.909 EPILEPSY, UNSP, NOT INTRACTABLE, WITHOUT 05/01/2017 CAROLINE SAINZ MD Ot M54.6 PAIN IN THORACIC SPINE 05/01/2017 CAROLINE SAINZ MD Ot M62.830 MUSCLE SPASM OF BACK 05/01/2017 CAROLINE SAINZ MD Ot X50.1XXA OVEREXERTION FROM PROLONGED STATIC OR AW 05/01/2017 CAROLINE SAINZ MD Ot Z85.43 PERSONAL HISTORY OF MALIGNANT NEOPLASM O 05/01/2017 CAROLINE SAINZ MD Ot Z90.49 ACQUIRED ABSENCE OF OTHER SPECIFIED PART 05/01/2017 CAROLINE SAINZ MD Ot Z90.710 ACQUIRED ABSENCE OF BOTH CERVIX AND UTER 05/01/2017 CAROLINE SAINZ MD Ot G40.909 EPILEPSY, UNSP, NOT INTRACTABLE, WITHOUT 05/01/2017 CAROLINE SAINZ MD Ot M54.6 PAIN IN THORACIC SPINE 05/01/2017 CAROLINE SAINZ MD Ot M62.830 MUSCLE SPASM OF BACK 05/01/2017 CAROLINE SAINZ MD Ot X50.1XXA OVEREXERTION FROM PROLONGED STATIC OR AW 05/01/2017 CAROLINE SAINZ MD Ot Z85.43 PERSONAL HISTORY OF MALIGNANT NEOPLASM O 05/01/2017 CAROLINE SAINZ MD Ot Z90.49 ACQUIRED ABSENCE OF OTHER SPECIFIED PART 05/01/2017 CAROLINE SAINZ MD Ot Z90.710 ACQUIRED ABSENCE OF BOTH CERVIX AND UTER 07/19/2017 KAMILAH HINES INTERNAL CONTROL CONSULTANT Ot F12.10 CANNABIS ABUSE, UNCOMPLICATED 07/19/2017 KAMILAH HINES APRN Ot F17.210 NICOTINE DEPENDENCE, CIGARETTES, UNCOMPL 07/19/2017 KAMILAH HINES APRN Ot G40.909 EPILEPSY, UNSP, NOT INTRACTABLE, WITHOUT 07/19/2017 KAMILAH HINES APRN Ot R51 HEADACHE 07/19/2017 KAMILAH HINES APRN Ot R56.9 UNSPECIFIED CONVULSIONS 07/19/2017 KAMILAH HINES APRN Ot Z90.49 ACQUIRED ABSENCE OF OTHER SPECIFIED PART 07/19/2017 KAMILAH HINES APRN Ot Z90.710 ACQUIRED ABSENCE OF BOTH CERVIX AND UTER 07/22/2017 KAMILAH HINSE APRN Ot F12.10 CANNABIS ABUSE, UNCOMPLICATED 07/22/2017 KAMILAH HINES APRN Ot F17.210 NICOTINE DEPENDENCE, CIGARETTES, UNCOMPL 07/22/2017 KAMILAH HINES APRN Ot G40.909 EPILEPSY, UNSP, NOT INTRACTABLE, WITHOUT 07/22/2017 KAMILAH HINES APRN Ot R51 HEADACHE 07/22/2017 KAMILAH HINES APRN Ot R56.9 UNSPECIFIED CONVULSIONS 07/22/2017 KAMILAH HINES APRN Ot Z90.49 ACQUIRED ABSENCE OF OTHER SPECIFIED PART 07/22/2017 KAMILAH HINES APRN Ot Z90.710 ACQUIRED ABSENCE OF BOTH CERVIX AND UTER Procedures There is no data. Results Test Result Range Complete urinalysis with reflex to culture - 04/29/17 07:30 Urine color determination YELLOW NRG Urine clarity determination SLIGHTLY CLOUDY NRG Urine pH measurement by test strip 5 5-9 Specific gravity of urine by test strip 1.020 1.016- 1.022 Urine protein assay by test strip, semi-quantitative NEGATIVE NEGATIVE Urine glucose detection by automated test strip NEGATIVE NEGATIVE Erythrocytes detection in urine sediment by light microscopy 1+ NEGATIVE Urine ketones detection by automated test strip NEGATIVE NEGATIVE Urine nitrite detection by test strip NEGATIVE NEGATIVE Urine total bilirubin detection by test strip NEGATIVE NEGATIVE Urine urobilinogen measurement by automated test strip (mass/volume) NORMAL NORMAL Urine leukocyte esterase detection by dipstick 1+ NEGATIVE Automated urine sediment erythrocyte count by microscopy (number/high power field) RARE NRG Automated urine sediment leukocyte count by microscopy (number/high power field ) RARE NRG Bacteria detection in urine sediment by light microscopy NEGATIVE NRG Squamous epithelial cells detection in urine sediment by light microscopy TNTC NRG Crystals detection in urine sediment by light microscopy NONE NRG Casts detection in urine sediment by light microscopy NONE NRG Mucus detection in urine sediment by light microscopy NEGATIVE NRG Complete urinalysis with reflex to culture NO NRG Blood CBC with ordered manual differential panel - 07/19/17 13:50 Blood leukocytes automated count (number/volume) 7.1 10*3/uL 4.3-11.0 Blood erythrocytes automated count (number/volume) 4.42 10*6/uL 4.35-5.85 Venous blood hemoglobin measurement (mass/volume) 13.7 g/dL 11.5-16.0 Blood hematocrit (volume fraction) 41 % 35-52 Automated erythrocyte mean corpuscular volume 93 [foz_us] 80-99 Automated erythrocyte mean corpuscular hemoglobin (mass per erythrocyte) 31 pg 25-34 Automated erythrocyte mean corpuscular hemoglobin concentration measurement ( mass/volume) 34 g/dL 32-36 Automated erythrocyte distribution width ratio 14.4 % 10.0-14.5 Automated blood platelet count (count/volume) 302 10*3/uL 130-400 Automated blood platelet mean volume measurement 10.1 [foz_us] 7.4-10.4 Automated blood neutrophils/100 leukocytes 51 % 42-75 Automated blood lymphocytes/100 leukocytes 35 % 12-44 Blood monocytes/100 leukocytes 4 % NRG Automated blood eosinophils/100 leukocytes 4 % 0-10 Automated blood basophils/100 leukocytes 0 % 0-10 Blood neutrophils automated count (number/volume) 3.6 10*3 1.8-7.8 Blood lymphocytes automated count (number/volume) 2.5 10*3 1.0-4.0 Blood monocytes automated count (number/volume) 0.7 10*3 0.0-1.0 Automated eosinophil count 0.3 10*3/uL 0.0-0.3 Automated blood basophil count (count/volume) 0.0 10*3/uL 0.0-0.1 Manual blood segmented neutrophils/100 leukocytes 61 % NRG Manual blood lymphocytes/100 leukocytes 32 % NRG Manual eosinophils/100 leukocytes in nose 3 % NRG Blood erythrocyte morphology finding identification NORMAL NRG Serum or plasma choriogonadotropin ( test) detection - 07/19/17 13:50 Serum or plasma choriogonadotropin ( test) detection NEGATIVE NEGATIVE Comprehensive metabolic panel - 07/19/17 13:50 Serum or plasma sodium measurement (moles/volume) 141 mmol/L 135-145 Serum or plasma potassium measurement (moles/volume) 4.4 mmol/L 3.6-5.0 Serum or plasma chloride measurement (moles/volume) 107 mmol/L 98-107 Carbon dioxide 25 mmol/L 21-32 Serum or plasma anion gap determination (moles/volume) 9 mmol/L 5-14 Serum or plasma urea nitrogen measurement (mass/volume) 17 mg/dL 7-18 Serum or plasma creatinine measurement (mass/volume) 0.83 mg/dL 0.60-1.30 Serum or plasma urea nitrogen/creatinine mass ratio 20 NRG Serum or plasma creatinine measurement with calculation of estimated glomerular filtration rate > NRG Serum or plasma glucose measurement (mass/volume) 102 mg/dL 70-105 Serum or plasma calcium measurement (mass/volume) 9.8 mg/dL 8.5-10.1 Serum or plasma total bilirubin measurement (mass/volume) 0.3 mg/dL 0.1-1.0 Serum or plasma alkaline phosphatase measurement (enzymatic activity/volume) 117 U/L 40-136 Serum or plasma aspartate aminotransferase measurement (enzymatic activity/ volume) 19 U/L 5-34 Serum or plasma alanine aminotransferase measurement (enzymatic activity/volume ) 19 U/L 0-55 Serum or plasma protein measurement (mass/volume) 8.0 g/dL 6.4-8.2 Serum or plasma albumin measurement (mass/volume) 4.5 g/dL 3.2-4.5 Serum or plasma carbamazepine measurement (mass/volume) - 07/19/17 13:50 Serum or plasma carbamazepine measurement (mass/volume) 4.7 ug/mL 4.0-12.0 Complete urinalysis with reflex to culture - 07/19/17 16:18 Urine color determination YELLOW NRG Urine clarity determination CLEAR NRG Urine pH measurement by test strip 5 5-9 Specific gravity of urine by test strip 1.020 1.016- 1.022 Urine protein assay by test strip, semi-quantitative NEGATIVE NEGATIVE Urine glucose detection by automated test strip NEGATIVE NEGATIVE Erythrocytes detection in urine sediment by light microscopy NEGATIVE NEGATIVE Urine ketones detection by automated test strip NEGATIVE NEGATIVE Urine nitrite detection by test strip NEGATIVE NEGATIVE Urine total bilirubin detection by test strip NEGATIVE NEGATIVE Urine urobilinogen measurement by automated test strip (mass/volume) NORMAL NORMAL Urine leukocyte esterase detection by dipstick 1+ NEGATIVE Automated urine sediment erythrocyte count by microscopy (number/high power field) [HPF] NRG Automated urine sediment leukocyte count by microscopy (number/high power field ) RARE NRG Bacteria detection in urine sediment by light microscopy TRACE NRG Squamous epithelial cells detection in urine sediment by light microscopy 0-2 NRG Crystals detection in urine sediment by light microscopy NONE NRG Casts detection in urine sediment by light microscopy NONE NRG Mucus detection in urine sediment by light microscopy SMALL NRG Complete urinalysis with reflex to culture NO NRG Urine drug screening test - 07/19/17 16:18 Urine phencyclidine detection by screening method NEGATIVE NEGATIVE Urine benzodiazepines detection by screening method NEGATIVE NEGATIVE Urine cocaine detection NEGATIVE NEGATIVE Urine amphetamines detection by screening method NEGATIVE NEGATIVE Urine methamphetamine detection by screening method NEGATIVE NEGATIVE Urine cannabinoids detection by screening method POSITIVE NEGATIVE Urine opiates detection by screening method NEGATIVE NEGATIVE Urine barbiturates detection NEGATIVE NEGATIVE Screening urine tricyclic antidepressants detection NEGATIVE NEGATIVE Urine methadone detection by screening method NEGATIVE NEGATIVE Urine oxycodone detection NEGATIVE NEGATIVE Urine propoxyphene detection NEGATIVE NEGATIVE Encounters ACCT No. Visit Date/Time Discharge Status Pt. Type Provider Facility Loc./Unit Complaint [id number] 08/05/2017 10:00:00 08/05/2017 23:59:59 [facility] Outpatient [facility] [id number] 07/19/2017 13:30:00 07/19/2017 16:59:00 DIS Emergency KAMILAH HINES APRN [facility] SEIZURE LIKE ACTIVITY [id number] 04/29/2017 07:00:00 04/29/2017 08:53:00 DIS Emergency CAROLINE SAINZ MD [facility] L SIDE BACK PAIN [id number] 04/23/2017 07:21:00 04/23/2017 08:35:00 DIS Emergency IGNACIA FORD DO [facility] RIGHT HAND PAIN
--- NOTE | 2017-12-02 10:52 | ED Upper Extremity ---
General Chief Complaint: Trauma-Non Activation Stated Complaint: PT INJURED BY HER DOG Nursing Triage Note: PT STATES SHE WAS LETTING HER BIG DOG OUT AND HE PULLED HER DOWN, CC OF LT HAND PAIN, UNABLE TO BUTTONER. Nursing Sepsis Screen: No Definite Risk Source: patient, family Exam Limitations: no limitations History of Present Illness Date Seen by Provider: Dec 02, 2017 Time Seen by Provider: 10:42 Initial Comments Patient was trying to put her dog out on a chain today just a few hours prior when it took off after a chicken dragging her to the ground landing on her left shoulder and her left hand got pinned and chain and twisted. She says the third finger hurts the worst and has quite a bit of swelling. She also hit her left knee and its little tender anteriorly but she is able to walk on it fine. She says she went to work but was having a hard time with moving her left hand because of the swelling and pain. She's not taken any Tylenol or Motrin yet for it. She would like her left hand examined and a note for work. She has no prior history of injury to her hand or knee. She's not strike her head nor lose consciousness. Allergies and Home Medications Allergies Coded Allergies: No Known Drug Allergies (Unverified , 04/23/17) Patient Home Medication List Home Medication List Reviewed: Yes Review of Systems Constitutional: No chills, No diaphoresis EENTM: No ear pain, No eye pain Respiratory: No cough, No short of breath Cardiovascular: No chest pain, No edema Gastrointestinal: No abdominal pain, No constipation, No diarrhea, No nausea : No Control/STD Prophylaxis: Other (status post hysterectomy) Musculoskeletal: see HPI Past Tjfjvaj-Yvptrs-Xsjrod Hx Patient Social History Alcohol Use: Denies Use Recreational Drug Use: Yes (THC) Drug of Choice: marijuana Smoking Status: Current Everyday Smoker Type Used: Cigarettes Recent Foreign Travel: No Contact w/Someone Who Travel: No Recent Infectious Disease Expo: No Recent Hopitalizations: No Seasonal Allergies Seasonal Allergies: No Past Medical History Surgeries: Yes Appendectomy, Hysterectomy, Neurological, Orthopedic Respiratory: No (BRONCHITIS) Cardiac: No Neurological: Yes Brain Tumor, Seizure 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 oz. 97.202420lr; BMI Method:Stated General Appearance: WD/WN, no apparent distress HEENT: PERRL/EOMI, pharynx normal Neck: non-tender, normal inspection Cardiovascular: normal peripheral pulses, regular rate, rhythm Respiratory: no respiratory distress, no accessory muscle use Back: normal inspection, no vertebral tenderness Shoulder: normal inspection; No bone tenderness, No deformity, No limited ROM; soft tissue tenderness Elbow/Forearm: normal inspection, non-tender, no evidence of injury, normal ROM , Left Wrist: Yes normal inspection, Yes non-tender, Yes no evidence of injury, Yes normal ROM Hand: Left, bone tenderness, deformity, ecchymosis, swelling Neurologic/Tendon: normal sensation, normal motor functions, normal tendon functions, responds to pain Neurologic/Psychiatric: alert, normal mood/affect, oriented x 3 Progress/Results/Core Measures Results/Orders My Orders Orders - MERT BEAN Ibuprofen Tablet (Motrin Tablet) (12/02/17 11:00) Hand, Left, 3 Views (12/02/17 10:46) Medications Given in ED Current Medications Medications Dose Ordered Sig/Abi Route Start Time Stop Time Status Last Admin Dose Admin Ibuprofen 800 mg ONCE ONCE PO 12/02/17 11:00 12/02/17 11:01 DC 12/02/17 10:51 800 MG Vital Signs/I&O 12/02/17 12/02/17 09:49 10:51 Temp 96.5 96.5 Pulse 83 Resp 20 B/P (MAP) 136/96 (109) Pulse Ox 97 O2 Delivery Room Air Blood Pressure Mean: 109 Progress Progress Note : Time: 10:50 Progress Note Knee exam is unremarkable her pain is in the anterior tibial plateau. No likelihood of fracture given her mobility and minor discomfort. She's declining any further x-ray or imaging of her knee. Her left hand however does have some swelling and tenderness especially in the second and third metacarpal. We'll get x-rays give her some ibuprofen. We've offered an Link bandage to wrap up her knee. We've given her an ice pack for her hand. We have counseled her on rice therapy. Diagnostic Imaging Diagonstic Imaging: Xray Plain Films/CT/US/NM/MRI: other (left hand) Comments NAME: [facility] REC#: [id number] PT STATUS: REG ER : 1980 PHYSICIAN: MERT BEAN MD ADMIT DATE: 12/02/17/ER Draft Date of Exam:12/02/17 HAND, LEFT, 3 VIEWS INDICATION: Left hand pain after fall. FINDINGS: 3 views. There are no fractures or dislocations. Articulating surfaces are smooth. Joint spaces well preserved. IMPRESSION: Normal left hand. Dictated on workstation # [id number] Dict: 12/02/17 1109 Trans: 12/02/17 1117 COLTEN [id number] Interpreted by: RENZO CAMARGO MD Electronically signed by: Reviewed: Reviewed by Me Departure Impression Primary Impression: Fall Qualified Codes: W19.XXXA - Unspecified fall, initial encounter Additional Impressions: Left anterior knee pain Left shoulder pain Qualified Codes: M25.512 - Pain in left shoulder Sprain of left hand Qualified Codes: S63.92XA - Sprain of unspecified part of left wrist and hand , initial encounter Contusion Qualified Codes: S60.222A - Contusion of left hand, initial encounter Disposition: 01 HOME, SELF-CARE Condition: Stable Departure-Patient Inst. Decision time for Depature: 11:19 Referrals: NO,LOCAL PHYSICIAN (PCP/Family) Primary Care Physician Patient Instructions: Active Range of Motion Exercises, Arms and Hands, Hand Pain (DC) Add. Discharge Instructions: Rest your hand for the next week. Keep it wrapped with an Link bandage and take it off to apply ice for 20 minutes every 4 hours for the first 3 days. You can also use heat for your areas of pain. You can also use creams such as icy hot, Aspercreme or Biofreeze. Use Tylenol 1000 mg every 8 hours in addition to ibuprofen 800 mg every 8 hours as needed for pain or discomfort. If is not improving in 1-2 weeks then you can follow-up with your primary care doctor for reevaluation. Finally keep your hand elevated above the level of your heart to help reduce swelling and pain. All discharge instructions reviewed with patient and/or family. Voiced understanding. Work/School Note: Work Release Form Date Seen in the Emergency Department: Dec 02, 2017 Return to Work: Dec 03, 2017 MERT BEAN Dec 02, 2017 10:52
[2017-12-02] MEDS ORDERED: IBUPROFEN 800 MG (MOTRIN) TAB PO ONE (11:00)
--- NOTE | 2017-12-02 11:17 | Diagnostic Imaging Report ---
INDICATION: Left hand pain after fall. FINDINGS: 3 views. There are no fractures or dislocations. Articulating surfaces are smooth. Joint spaces well preserved. IMPRESSION: Normal left hand. Dictated by: Dictated on workstation # [id number]
[2017-12-02 11:35] VITALS: BP 136/96
== END 2017-12-02 11:34 | disposition home or self-care (01) ==
LOC: EDUNIT# 09:32 → ER 09:34
DX: S63.92XA Sprain of unspecified part of left wrist and hand, initial encounter (principal); M25.512 Pain in left shoulder; M25.562 Pain in left knee; F12.10 Cannabis abuse, uncomplicated; F17.210 Nicotine dependence, cigarettes, uncomplicated; G40.909 Epilepsy, unspecified, not intractable, without status epilepticus; Z86.011 Personal history of benign neoplasm of the brain; Z90.710 Acquired absence of both cervix and uterus; Z90.49 Acquired absence of other specified parts of digestive tract; W54.8XXA Other contact with dog, initial encounter
CPT/HCPCS: 73130

== ENCOUNTER 2017-12-29 08:41 | Emergency (ER) | payer MEDICAID ==
[~2017-12-29] VITALS: Ht 185.4 cm; Wt 94.8 kg
--- OUTSIDE RECORDS SUMMARY | 2017-12-29 08:47 | XMS REPORT | Continuity of Care Document ---
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 Ot F12.10 CANNABIS ABUSE, UNCOMPLICATED 07/19/2017 KAMILAH [...] OF BOTH CERVIX AND UTER 07/22/2017 KAMILAH HINES APRN Ot F12.10 CANNABIS ABUSE, UNCOMPLICATED 07/22/2017 [...] ACQUIRED ABSENCE OF BOTH CERVIX AND UTER 12/04/2017 MERT BEAN MD Ot F12.10 CANNABIS ABUSE, UNCOMPLICATED 12/04/2017 MERT BEAN MD Ot F17.210 NICOTINE DEPENDENCE, CIGARETTES, UNCOMPL 12/04/2017 MERT BEAN MD Ot G40.909 EPILEPSY, UNSP, NOT INTRACTABLE, WITHOUT 12/04/2017 MERT BEAN MD Ot M25.512 PAIN IN LEFT SHOULDER 12/04/2017 MERT BEAN MD Ot M25.562 PAIN IN LEFT KNEE 12/04/2017 MERT BEAN MD Ot M79.642 PAIN IN LEFT HAND 12/04/2017 MERT BEAN MD Ot S63.92XA SPRAIN OF UNSP PART OF LEFT WRIST AND TORO 12/04/2017 MERT BEAN MD Ot W54.8XXA OTHER CONTACT WITH DOG, INITIAL ENCOUNTE 12/04/2017 MERT BEAN MD Ot Z86.011 PERSONAL HISTORY OF BENIGN NEOPLASM OF T 12/04/2017 MERT BEAN MD Ot Z90.49 ACQUIRED ABSENCE OF OTHER SPECIFIED PART 12/04/2017 MERT BEAN MD Ot Z90.710 ACQUIRED ABSENCE OF BOTH CERVIX AND UTER 12/08/2017 MERT BEAN MD Ot F12.10 CANNABIS ABUSE, UNCOMPLICATED 12/08/2017 MERT BEAN MD Ot F17.210 NICOTINE DEPENDENCE, CIGARETTES, UNCOMPL 12/08/2017 MERT BEAN MD Ot G40.909 EPILEPSY, UNSP, NOT INTRACTABLE, WITHOUT 12/08/2017 MERT BEAN MD Ot M25.512 PAIN IN LEFT SHOULDER 12/08/2017 MERT BEAN MD Ot M25.562 PAIN IN LEFT KNEE 12/08/2017 MERT BEAN MD Ot M79.642 PAIN IN LEFT HAND 12/08/2017 MERT BEAN MD Ot S63.92XA SPRAIN OF UNSP PART OF LEFT WRIST AND TORO 12/08/2017 MERT BEAN MD Ot W54.8XXA OTHER CONTACT WITH DOG, INITIAL ENCOUNTE 12/08/2017 MERT BEAN MD Ot Z86.011 PERSONAL HISTORY OF BENIGN NEOPLASM OF T 12/08/2017 MERT BEAN MD Ot Z90.49 ACQUIRED ABSENCE OF OTHER SPECIFIED PART 12/08/2017 MERT BEAN MD Ot Z90.710 ACQUIRED ABSENCE OF BOTH [...] Status Pt. Type Provider Facility Loc./Unit Complaint [id number] 08/05/2017 10:00:00 08/05/2017 23:59:59 C[facility] [id number] 12/02/2017 09:34:00 12/02/2017 11:34:00 DIS Outpatient GENEVA LONG, MERT Cordova [facility] ER PT INJURED BY HER DOG [id number] 07/19/2017 13:30:00 07/19/2017 16:59:00 DIS Emergency KAMILAH HINES APRN [facility] ER SEIZURE LIKE ACTIVITY [id number] 04/29/2017 07:00:00 04/29/2017 08:53:00 DIS Emergency EMELI LONG, CAROLINE Kincaid [facility] ER L SIDE BACK PAIN [id number] 04/23/2017 07:21:00 04/23/2017 08:35:00 DIS Emergency IGNACIA FORD DO [facility] ER RIGHT HAND PAIN
--- NOTE | 2017-12-29 08:55 | ED Lower Extremity ---
General Stated Complaint: R FOOT PAIN Source: patient, other Exam Limitations: no limitations History of Present Illness Date Seen by Provider: Dec 29, 2017 Time Seen by Provider: 08:45 Initial Comments The patient presents to the ER by private conveyance with her significant other and a chief complaint that for the past 3 days she's been having some pain and minor swelling on her right foot lateral dorsum. She does not recall injuring it. She's never had any previous injury sprain strains or fracture to this foot. 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 She has tried Excedrin, and ibuprofen in the past couple days with very little relief. It's painful to weight-bear but she is able to stand and walk on it. She has a history of seizure disorder on Tegretol and Keppra. No drug allergies. She has a history of gynecologic cancer status post chemotherapy and hysterectomy and in remission. Allergies and Home Medications Allergies Coded Allergies: No Known Drug Allergies (Unverified , 04/23/17) Patient Home Medication List Home Medication List Reviewed: Yes Review of Systems Constitutional: No chills, No diaphoresis EENTM: No ear discharge, No ear pain Respiratory: No cough, No short of breath Cardiovascular: No chest pain, No palpitations Gastrointestinal: No abdominal pain, No constipation, No diarrhea Past Hzjzhdq-Ntxees-Givvij Hx Patient Social History Alcohol Use: Denies Use Recreational Drug Use: Yes Drug of Choice: marijuana Smoking Status: Current Everyday Smoker Type Used: Cigarettes Recent Foreign Travel: No Contact w/Someone Who Travel: No Recent Hopitalizations: No Seasonal Allergies Seasonal Allergies: No Past Medical History Surgeries: Yes Appendectomy, Hysterectomy, Neurological, Orthopedic Respiratory: No (BRONCHITIS) Cardiac: No Neurological: Yes Brain Tumor, 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 oz. 97.522549fp; BMI Method:Stated General Appearance: WD/WN, mild distress HEENT: PERRL/EOMI, pharynx normal Neck: non-tender, normal inspection Cardiovascular: normal peripheral pulses, regular rate, rhythm, no edema Respiratory: no respiratory distress, no accessory muscle use Ankles: bilateral ankle non-tender, bilateral ankle normal inspection, bilateral ankle normal range of motion, bilateral ankle no evidence of injury Feet: left foot non-tender, left foot normal inspection; bilateral foot normal range of motion; left foot no evidence of injury; right foot bone tenderness ( lateral metatarsals and tarsals are moderately tender to palpation), right foot ecchymosis (2 x 1 cm hematoma/ecchymosis over the right lateral dorsal foot.), right foot pain, right foot soft tissue tenderness, right foot swelling (faint swelling of the foot) Neurologic/Tendon: normal sensation, normal motor functions, normal tendon functions, responds to pain, no evidence tendon injury Neurologic/Psychiatric: alert, oriented x 3 Skin: normal color, warm/dry, other (. No abrasions, lacerations or other evidence of injury) Progress/Results/Core Measures Results/Orders My Orders Orders - MERT BEAN Ketorolac Injection (Toradol Injection) (12/29/17 09:00) Foot, Right, 3 View (12/29/17 08:52) Vital Signs/I&O 12/29/17 08:56 Temp 96.5 Pulse 85 Resp 16 B/P (MAP) 138/90 (106) Pulse Ox 98 Progress Progress Note : Time: 09:43 Progress Note Toradol and ice for pain. No obvious trauma but there is a little hematoma or bruise there on her foot where she may have injured it in the night. This is an x-ray and if it's clean then we'll put her in a pedro shoe and have her follow- up with her primary care doctor. Diagnostic Imaging Diagonstic Imaging: Xray Plain Films/CT/US/NM/MRI: other (r foot) Comments [facility] [place], [place] NAME: DARIAN LUNA [facility] REC#: [id number] PT STATUS: REG ER : 1980 PHYSICIAN: MERT BEAN MD ADMIT DATE: 12/29/17/ER Draft Date of Exam:12/29/17 FOOT, RIGHT, 3 VIEW EXAMINATION: Right foot radiographs, 3 views. COMPARISON: None. HISTORY: 37-year-old female, right foot pain. FINDINGS: There is normal variant congenital fusion of the fifth digit middle and distal phalanges. There is no ankle joint effusion. There is no radiopaque foreign body. There is no identified acute fracture. Bone alignment and mineralization are unremarkable. Joint spaces are well-preserved. There is no prominent focal soft tissue swelling. There is no periosteal reaction. IMPRESSION: 1. No identified acute bony abnormality of the right foot. Dictated on workstation # [id number] Dict: 12/29/17911 Trans: 12/29/17915 CV [id number] Interpreted by: ADITI CEE MD Electronically signed by: Reviewed: Reviewed by Me Departure Impression Primary Impression: Contusion of foot Qualified Codes: S90.31XA - Contusion of right foot, initial encounter Additional Impression: Sprain and strain of foot Disposition: 01 HOME, SELF-CARE Condition: Stable Departure-Patient Inst. Decision time for Depature: 09:44 Referrals: ANNE HERNANDEZ (PCP/Family) Primary Care Physician Patient Instructions: Metatarsalgia (DC) Add. Discharge Instructions: Apply ice for 20 minutes every 4 hours for the first 3 days. Keep the foot elevated for swelling and pain. Use Tylenol 1000 mg in addition to ibuprofen 800 mg every 8 hours each as needed for pain. You can also use the tramadol 1 tablet every 6 hours for breakthrough pain. After 3 days heat will be helpful for your foot. Wear the orthotic shoe if you have to be up walking around for the first week. Follow-up in the next 1-2 weeks with your primary care doctor for reevaluation. Scripts Tramadol HCl (Tramadol HCl) 50 Mg Tablet 50 MG PO Q6H PRN for PAIN, #15 TAB 0 Refills Prov: MERT BEAN 12/29/17 Work/School Note: Work Release Form Date Seen in the Emergency Department: Dec 29, 2017 Return to Work: Dec 31, 2017 Restrictions: Need Release from Doctor Other Restrictions Listed Below: Orthotic shoe 1 week and minimize standing or walking. MERT BEAN Dec 29, 2017 08:55
[2017-12-29] MEDS ORDERED: KETOROLAC 30 MG/ML VIAL IM ONE (09:00)
--- NOTE | 2017-12-29 09:16 | Diagnostic Imaging Report ---
EXAMINATION: Right foot radiographs, 3 views. COMPARISON: None. HISTORY: 37-year-old female, right foot pain. FINDINGS: There is normal variant congenital fusion of the fifth digit middle and distal phalanges. There is no ankle joint effusion. There is no radiopaque foreign body. There is no identified acute fracture. Bone alignment and mineralization are unremarkable. Joint spaces are well-preserved. There is no prominent focal soft tissue swelling. There is no periosteal reaction. IMPRESSION: 1. No identified acute bony abnormality of the right foot. Dictated by: Dictated on workstation # [id number]
[2017-12-29] MEDS ORDERED: TRAM50TA2 PO (09:48)
[2017-12-29 09:59] VITALS: BP 139/80
== END 2017-12-29 09:59 | disposition home or self-care (01) ==
LOC: EDUNIT# 08:41 → ER 08:42
DX: S90.31XA Contusion of right foot, initial encounter (principal); G40.909 Epilepsy, unspecified, not intractable, without status epilepticus; F12.10 Cannabis abuse, uncomplicated; F17.210 Nicotine dependence, cigarettes, uncomplicated; Z86.011 Personal history of benign neoplasm of the brain; Z90.710 Acquired absence of both cervix and uterus; Z85.41 Personal history of malignant neoplasm of cervix uteri; Z92.21 Personal history of antineoplastic chemotherapy; X58.XXXA Exposure to other specified factors, initial encounter
CPT/HCPCS: 73630

== ENCOUNTER 2018-03-31 03:46 | Emergency (ER) | payer MEDICAID ==
[~2018-03-31] VITALS: Ht 185.4 cm; Wt 94.3 kg
[~2018-03-31 03:46] MED LIST changes: +TRAM50TA2 PO
--- OUTSIDE RECORDS SUMMARY | 2018-03-31 03:51 | XMS REPORT | Continuity of Care Document ---
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 Ot F12.10 CANNABIS ABUSE, UNCOMPLICATED 07/19/2017 KAMILAH [...] ACQUIRED ABSENCE OF BOTH CERVIX AND UTER 12/02/2017 MERT BEAN MD Ot F12.10 CANNABIS ABUSE, UNCOMPLICATED 12/02/2017 MERT BEAN MD Ot F17.210 NICOTINE DEPENDENCE, CIGARETTES, UNCOMPL 12/02/2017 MERT BEAN MD Ot G40.909 EPILEPSY, UNSP, NOT INTRACTABLE, WITHOUT 12/02/2017 MERT BEAN MD Ot M25.512 PAIN IN LEFT SHOULDER 12/02/2017 MERT BEAN MD Ot M25.562 PAIN IN LEFT KNEE 12/02/2017 MERT BEAN MD Ot M79.642 PAIN IN LEFT HAND 12/02/2017 MERT BEAN MD Ot S63.92XA SPRAIN OF UNSP PART OF LEFT WRIST AND TORO 12/02/2017 MERT BEAN MD Ot W54.8XXA OTHER CONTACT WITH DOG, INITIAL ENCOUNTE 12/02/2017 MERT BEAN MD Ot Z86.011 PERSONAL HISTORY OF BENIGN NEOPLASM OF T 12/02/2017 MERT BEAN MD Ot Z90.49 ACQUIRED ABSENCE OF OTHER SPECIFIED PART 12/02/2017 MERT BEAN MD Ot Z90.710 ACQUIRED ABSENCE [...] ACQUIRED ABSENCE OF BOTH CERVIX AND UTER 12/29/2017 MERT BEAN MD Ot F12.10 CANNABIS ABUSE, UNCOMPLICATED 12/29/2017 MERT BEAN MD Ot F17.210 NICOTINE DEPENDENCE, CIGARETTES, UNCOMPL 12/29/2017 MERT BEAN MD Ot G40.909 EPILEPSY, UNSP, NOT INTRACTABLE, WITHOUT 12/29/2017 MERT BEAN MD Ot M79.671 PAIN IN RIGHT FOOT 12/29/2017 MERT BEAN MD Ot S90.31XA CONTUSION OF RIGHT FOOT, INITIAL ENCOUNT 12/29/2017 MERT BEAN MD Ot X58.XXXA EXPOSURE TO OTHER SPECIFIED FACTORS, INI 12/29/2017 MERT BEAN MD Ot Z85.41 PERSONAL HISTORY OF MALIGNANT NEOPLASM O 12/29/2017 MERT BEAN MD Ot Z86.011 PERSONAL HISTORY OF BENIGN NEOPLASM OF T 12/29/2017 MERT BEAN MD Ot Z90.710 ACQUIRED ABSENCE OF BOTH CERVIX AND UTER 12/29/2017 MERT BEAN MD Ot Z92.21 PERSONAL HISTORY OF ANTINEOPLASTIC CHEMO Procedures There is no data. Results Test [...] Status Pt. Type Provider Facility Loc./Unit Complaint [id number] 08/05/2017 10:00:00 08/05/2017 23:59:59 CLS Outpatient INGRID [facility]ERN [facility] [place] [id number] 12/29/2017 08:42:00 12/29/2017 09:59:00 DIS Emergency MERT BEAN MD [facility] ER R FOOT PAIN [id number] 12/02/2017 09:34:00 12/02/2017 11:34:00 DIS Emergency MERT BEAN MD [facility] ER PT INJURED BY HER DOG [id number] 07/19/2017 13:30:00 07/19/2017 16:59:00 DIS Emergency KAMILAH HINES APRN [facility] ER SEIZURE LIKE ACTIVITY [id number] 04/29/2017 07:00:00 04/29/2017 08:53:00 DIS Emergency CAROLINE SAINZ MD [facility] ER L SIDE BACK PAIN [id number] 04/23/2017 07:21:00 04/23/2017 08:35:00 DIS Emergency IGNACIA FORD DO [facility] ER RIGHT HAND PAIN
--- NOTE | 2018-03-31 05:48 | Diagnostic Imaging Report ---
INDICATION: Fall. Ankle pain. COMPARISON: None. FINDINGS: 3 views of the right ankle were obtained. There is no acute fracture or dislocation. No focal osseous lesions are seen. The surrounding soft tissue structures are unremarkable. There are no radiopaque foreign bodies. IMPRESSION: 1. No acute fracture or dislocation in the right ankle. Dictated by: Dictated on workstation # [id number]
--- NOTE | 2018-03-31 05:53 | Diagnostic Imaging Report ---
INDICATION: Pain status post fall. COMPARISON: None. FINDINGS: 3 views of the right knee joint demonstrate no acute fracture or dislocation. No focal osseous lesions are seen. No significant joint effusion is seen. The surrounding soft tissue structures are unremarkable. There are no radiopaque foreign bodies. IMPRESSION: 1. No acute fractures or dislocations of the right knee joint. Dictated by: Dictated on workstation # [id number]
--- NOTE | 2018-03-31 05:53 | Diagnostic Imaging Report ---
INDICATION: Pain status post fall. COMPARISON: None. FINDINGS: 2 views of the right tibia and fibula show no fractures, dislocations, or other acute bony abnormalities identified. Joint spaces are well maintained throughout. The soft tissues appear unremarkable. No radiopaque foreign bodies are identified. IMPRESSION: No acute fractures or dislocations of the right tibia or fibula. Dictated by: Dictated on workstation # [id number]
--- NOTE | 2018-03-31 05:54 | ED Fall/Injury ---
General Chief Complaint: Lower Extremity Stated Complaint: TWISTED RT. ANKLE RT KNEE PAIN Nursing Triage Note: Pt reports she slipped last night around 2030 and R knee buckled. Pt now c/o R knee and R ankle apin Source: patient Exam Limitations: no limitations History of Present Illness Date Seen by Provider: Mar 31, 2018 Time Seen by Provider: 04:39 Initial Comments This 37-year-old woman presents to the emergency room with complaints of pain in the right knee and ankle after slipping and twisting her ankle and knee last night. She reports having difficulty with ambulation because of pain. She denies any other injuries. Allergies and Home Medications Allergies Coded Allergies: No Known Drug Allergies (Unverified , 04/23/17) Home Medications Tramadol HCl 50 Mg Tablet, 50 MG PO Q6H PRN for PAIN Prescribed by: MERT BEAN on 12/29/17 0948 Patient Home Medication List Home Medication List Reviewed: Yes Review of Systems Review of Systems Constitutional: no symptoms reported Eyes: No Symptoms Reported Ears, Nose, Mouth, Throat: no symptoms reported Respiratory: no symptoms reported Cardiovascular: no symptoms reported Gastrointestinal: no symptoms reported Genitourinary: no symptoms reported Musculoskeletal: see HPI Skin: no symptoms reported Psychiatric/Neurological: No Symptoms Reported Past Pcpdide-Vialmj-Eipvbs Hx Past Med/Social Hx: Reviewed Nursing Past Med/Soc Hx Patient Social History Alcohol Use: Denies Use Recreational Drug Use: Yes Drug of Choice: marijuana Smoking Status: Current Everyday Smoker Type Used: Cigarettes Recent Foreign Travel: No Contact w/Someone Who Travel: No Recent Infectious Disease Expo: No Recent Hopitalizations: No Seasonal Allergies Seasonal Allergies: No Past Medical History Surgeries: Yes (brain sx related to tumor as a kid) Appendectomy, Hysterectomy, Neurological, Orthopedic Respiratory: No (BRONCHITIS) Cardiac: No Neurological: Yes Brain Tumor, 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 oz. 94.488193tn; BMI Method:Stated General Appearance: WD/WN, mild distress HEENT: PERRL/EOMI, normal ENT inspection Neck: normal inspection Respiratory: normal breath sounds, no respiratory distress Extremities: other (Generalized tenderness from the lower lateral knee down through the ankle and lateral foot. No significant swelling, ecchymosis, or erythema noted. 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, no motor/sensory deficits, alert, normal mood/affect, oriented x 3 Skin: normal color, warm/dry John Coma Score Best Eye Response: (4) Open Spontaneously Best Verbal Response: (5) Oriented Best Motor Response: (6) Obeys Commands John Total: 15 Progress/Results/Core Measures Results/Orders My Orders Orders - CAROLINE SAINZ MD Knee, Right, 3 Views (03/31/18 04:39) Ankle, Right, 3 Views (03/31/18 04:39) Tibia/Fibula, Right, 2 Views (03/31/18 05:22) Foot, Right, 3 View (03/31/18 05:22) Ketorolac Injection (Toradol Injection) (03/31/18 06:00) Crutches (03/31/18 05:46) Im/Sub-Q Injection Non-Ab Ed (03/31/18 ) Vital Signs/I&O 03/31/18 03/31/18 04:39 06:29 Temp 97.1 97.1 Pulse 69 69 Resp 18 18 B/P (MAP) 124/84 (97) 124/84 (97) Pulse Ox 99 99 O2 Delivery Room Air Room Air Blood Pressure Mean: 97 Progress Progress Note : Progress Note X-rays revealed no acute injuries. Toradol was given for pain. Crutches were dispensed. Diagnostic Imaging Diagonstic Imaging: Xray Plain Films/CT/US/NM/MRI: knee Comments Right knee x-ray viewed by me and report not available. No acute fractures or dislocations appreciated. Diagonstic Imaging: Xray Plain Films/CT/US/NM/MRI: leg Comments Right tib-fib viewed by me. Report not yet available. No acute fractures or dislocations appreciated. Diagonstic Imaging: Xray Plain Films/CT/US/NM/MRI: ankle Comments Ankle x-ray viewed by me. Report not yet available. No acute fracture or dislocation appreciated. Diagonstic Imaging: Xray Comments Right foot x-ray viewed by me. Report not yet available. No acute fractures or dislocations appreciated. Departure Impression Primary Impression: Fall on same level from slipping as cause of accidental injury Additional Impressions: Right knee pain Qualified Codes: M25.561 - Pain in right knee Right foot pain Disposition: HOME, SELF-CARE Condition: Improved Departure-Patient Inst. Decision time for Depature: 05:50 Referrals: ANNE HERNANDEZ (PCP/Family) Primary Care Physician Patient Instructions: Sprain (DC) Add. Discharge Instructions: No fractures or dislocations were noted on your x-rays. You may possibly have a sprain of your knee or ankle. You may take ibuprofen up to 600 mg every 6 hours as needed for pain. Add Tylenol (acetaminophen) up to 1000 mg every 6 hours as needed for pain not controlled by ibuprofen. Use crutches as needed for walking. Gradually increase level of activity as pain allows. Follow-up with your primary care provider as soon as possible for repeat examination. Link bandages around affected areas may be helpful in reducing pain and swelling. Icing at 20 minute intervals should also be helpful for the next couple of days. All discharge instructions reviewed with patient and/or family. Voiced understanding. Work/School Note: Work Release Form Date Seen in the Emergency Department: Mar 31, 2018 Return to Work: Apr 01, 2018 Restrictions: No Restrictions CAROLINE SAINZ MD Mar 31, 2018 05:54
--- NOTE | 2018-03-31 05:54 | Diagnostic Imaging Report ---
INDICATION: Fall. Pain. COMPARISON: None. FINDINGS: 3 views of the right foot demonstrate no acute fracture or dislocation. Well-circumscribed lucency is noted within the second middle phalanx and measures approximately 6 mm. There is no soft tissue swelling. Joint spaces are well maintained. No radiopaque foreign bodies are seen. IMPRESSION: 1. No acute fractures or dislocations of the right foot. 2. Well-circumscribed lucency within the second middle phalanx; possible enchondroma. Dictated by: Dictated on workstation # [id number]
[2018-03-31] MEDS ORDERED: KETOROLAC 30 MG/ML VIAL IM ONE (06:00)
--- NOTE | 2018-03-31 06:26 | NUR ---
Pt to nurses station stating she does not need crutches and is able to ambulate without.
[2018-03-31 06:29] VITALS: BP 124/84
== END 2018-03-31 06:29 | disposition home or self-care (01) ==
LOC: EDUNIT# 03:46 → ER 03:48
DX: M25.561 Pain in right knee (principal); M79.671 Pain in right foot; G40.909 Epilepsy, unspecified, not intractable, without status epilepticus; F12.10 Cannabis abuse, uncomplicated; F17.210 Nicotine dependence, cigarettes, uncomplicated; Z85.841 Personal history of malignant neoplasm of brain; Z85.43 Personal history of malignant neoplasm of ovary; Z87.09 Personal history of other diseases of the respiratory system; Z90.49 Acquired absence of other specified parts of digestive tract; Z90.710 Acquired absence of both cervix and uterus; W01.0XXA Fall on same level from slipping, tripping and stumbling without subsequent striking against object, initial encounter
CPT/HCPCS: 73562; 73590; 73610; 73630

== ENCOUNTER 2018-04-23 07:13 | Emergency (ER) | payer MEDICAID ==
[~2018-04-23] VITALS: Ht 185.4 cm; Wt 90.7 kg
[2018-04-23] MEDS ORDERED: KETOROLAC 60 MG/2 ML VIAL IM STA (07:25)
[2018-04-23 07:42] VITALS: BP 121/94
[2018-04-23] MEDS ORDERED: LEVO100T7 (07:44)
--- NOTE | 2018-04-23 07:59 | ED Lower Extremity ---
General Chief Complaint: Lower Extremity Stated Complaint: R FOOT INJ Nursing Triage Note: TO ED PER W/C ACCMPIED BY FEMALE. PATIENT REPORTS THAT SHE SLIPPED ON HER PUPPY PAD AND TWISTED HER R ANKLE. SAMETHING HAPPED 2 WEEKS AGO AND WAS SEEN IN ED AT THAT TIME ALSO Nursing Sepsis Screen: No Definite Risk Source: patient Exam Limitations: no limitations History of Present Illness Date Seen by Provider: Apr 23, 2018 Time Seen by Provider: 07:20 Initial Comments Here with report of right ankle pain after slipping a puppy pad this morning. Apparently she was walking in the dark when she stepped on the pad causing her to fall and twist her right ankle. She did the same thing a few weeks ago apparently. Denies other injury. Complains of severe pain to the right ankle. Lateral aspect mostly but complains of pain all over. Onset: this morning (approximately one hour ago) Severity: moderate Pain/Injury Location: right ankle Method of Injury: fell, twisted Modifying Factors: Improves With Immobilization; Worse With Movement Allergies and Home Medications Allergies Coded Allergies: No Known Drug Allergies (Unverified , 04/23/17) Home Medications Tramadol HCl 50 Mg Tablet, 50 MG PO Q6H PRN for PAIN Prescribed by: MERT BEAN on 12/29/17 0948 Patient Home Medication List Home Medication List Reviewed: Yes Review of Systems Constitutional: see HPI; No weakness Respiratory: no symptoms reported Cardiovascular: no symptoms reported Musculoskeletal: see HPI, joint pain, joint swelling, muscle pain Skin: No change in color, No lesions Psychiatric/Neurological: No Symptoms Reported Past Zqiffkw-Rqvzxn-Nohusy Hx Past Med/Social Hx: Reviewed Nursing Past Med/Soc Hx Patient Social History Alcohol Use: Denies Use Recreational Drug Use: No Drug of Choice: marijuana Smoking Status: Current Everyday Smoker Type Used: Cigarettes Recent Foreign Travel: No Contact w/Someone Who Travel: No Recent Infectious Disease Expo: No Recent Hopitalizations: No Seasonal Allergies Seasonal Allergies: No Past Medical History Surgeries: Yes (brain sx related to tumor as a kid) Appendectomy, Hysterectomy, Neurological, Orthopedic Respiratory: No (BRONCHITIS) Cardiac: No Neurological: Yes Brain Tumor, Seizure Disorder [employer] REPA[employer] History: Hysterectomy Genitourinary: No Gastrointestinal: No Musculoskeletal: Yes (LEFT SHOULDER SURGERY) Fractures Endocrine: No HEENT: No Cancer: Yes Brain, Ovarian Psychosocial: No Integumentary: No Blood Disorders: No Family Medical History Reviewed Nursing Family Hx Physical Exam Vital Signs Vital Signs - First Documented 04/23/18 07:16 Temp 95.9 Pulse 110 Resp 18 B/P (MAP) 161/116 (131) Pulse Ox 98 O2 Delivery Room Air Capillary Refill : Less Than 3 Seconds Height, Weight, BMI Height: 6'1.00" Weight: 200lbs. oz. 90.362975ob; BMI Method:Stated General Appearance: WD/WN, no apparent distress Cardiovascular: regular rate, rhythm, no murmur Respiratory: lungs clear, normal breath sounds Ankles: left ankle non-tender, left ankle normal inspection, left ankle normal range of motion; right ankle pain, right ankle soft tissue tenderness, right ankle swelling (lateral aspect), right ankle other (noted dog excrement on patient's foot and toes) Neurologic/Tendon: normal sensation, normal motor functions, normal tendon functions Neurologic/Psychiatric: alert, oriented x 3 Skin: normal color, warm/dry Progress/Results/Core Measures Results/Orders My Orders Orders - JEANNE ROBERTSON MD Ankle, Right, 3 Views (04/23/18 07:25) Ketorolac Injection (Toradol Injection) (04/23/18 07:25) Vital Signs/I&O 04/23/18 04/23/18 07:16 07:42 Temp 95.9 Pulse 110 Resp 18 B/P (MAP) 161/116 (131) 121/94 (103) Pulse Ox 98 O2 Delivery Room Air Blood Pressure Mean: 103 Progress Progress Note : Progress Note Seen and evaluated. X-ray right ankle. Toradol 60 mg IM and ice pack given. 0755: Pending x-ray read although preliminary shows no acute fracture. Patient stating the pain shot is not working. I did inform her that it is limited if this was just a sprain and then she asked for a work note which I will give. Monitor patient. 0815: X-ray results noted. Question avulsion medial lateral. Patient is tender everywhere worse oats difficult to ascertain clinically. We will go ahead and put her in walking boot to help with pain instability. She is instructed to follow-up with her doctor and/or orthopedist. She states that she did not take her crutches from last visit so she may need nose. Discharged home with return precautions. Patient verbalize understanding instructions and agreement with plan. Diagnostic Imaging Diagonstic Imaging: Xray Plain Films/CT/US/NM/MRI: ankle Comments NAME: DARIAN LUNA [facility] REC#: [id number] PT STATUS: REG ER : 1980 PHYSICIAN: JEANNE ROBERTSON MD ADMIT DATE: 04/23/18/ER Draft Date of Exam:04/23/18 ANKLE, RIGHT, 3 VIEWS Indication: Fall with right ankle pain AP, oblique, and lateral views of the right ankle are obtained. There is a small calcification inferior to the tip of the lateralmost of the distal fibula, suspicious for a small avulsion. There is also a tiny calcification adjacent to the medialmost of the distal tibia suspicious for tiny avulsion. Remaining bony structures are intact. There is no dislocation. IMPRESSION: There are small calcifications adjacent to the lateral and medial malleoli suspicious for small avulsions. Correlate for point tenderness in these areas. Dictated on workstation # [id number] Dict: 04/23/18 0805 Trans: 04/23/18 0808 [facility] [id number] Interpreted by: ELIE FRAZIER MD Electronically signed by: Departure Impression Primary Impression: Right ankle sprain Qualified Codes: S93.401A - Sprain of unspecified ligament of right ankle, initial encounter Disposition: HOME, SELF-CARE Condition: Stable Departure-Patient Inst. Decision time for Depature: 08:02 Referrals: ANNE HERNANDEZ (PCP) Primary Care Physician PRAVEENA ÁLVAREZ MICHAEL P MD Patient Instructions: Ankle Sprain (DC) Add. Discharge Instructions: All discharge instructions reviewed with patient and/or family. Voiced understanding. Use walking boot for comfort over the next week or 2 and then as needed. Follow up with your DrJose in a few days for recheck. Return for worse pain, swelling, weakness, numbness or other concerns as needed. You should follow-up with the orthopedist listed or of your choosing within one week for recheck and further evaluation. You may use ibuprofen 600 mg every 8 hours as needed for pain. You may use Tylenol/acetaminophen 1000 mg every 8 hours as needed for pain. You may use ice packs 20 minutes per hour as needed over the next one to 2 days to area of concern to reduce pain and swelling. You need to create a safer environment in your home including using night lights and changing the obstacles in your home to help reduce your chance of falls. Work/School Note: Work Release Form Date Seen in the Emergency Department: Apr 23, 2018 Return to Work: Apr 25, 2018 Restrictions: No Restrictions Other Restrictions Listed Below: Use walking boot as needed over the next week or 2. JEANNE ROBERTSON MD Apr 23, 2018 07:59
--- NOTE | 2018-04-23 08:09 | Diagnostic Imaging Report ---
Indication: Fall with right ankle pain AP, oblique, and lateral views of the right ankle are obtained. There is a small calcification inferior to the tip of the lateralmost of the distal fibula, suspicious for a small avulsion. There is also a tiny calcification adjacent to the medialmost of the distal tibia suspicious for tiny avulsion. Remaining bony structures are intact. There is no dislocation. IMPRESSION: There are small calcifications adjacent to the lateral and medial malleoli suspicious for small avulsions. Correlate for point tenderness in these areas. Dictated by: Dictated on workstation # [id number]
[2018-04-23 08:28] VITALS: BP 118/76
== END 2018-04-23 08:28 | disposition home or self-care (01) ==
LOC: EDUNIT# 07:13 → ER 07:14
DX: S93.401A Sprain of unspecified ligament of right ankle, initial encounter (principal); G40.909 Epilepsy, unspecified, not intractable, without status epilepticus; F17.210 Nicotine dependence, cigarettes, uncomplicated; F12.10 Cannabis abuse, uncomplicated; Z90.49 Acquired absence of other specified parts of digestive tract; Z90.710 Acquired absence of both cervix and uterus; Z86.011 Personal history of benign neoplasm of the brain; Z85.43 Personal history of malignant neoplasm of ovary; Z85.841 Personal history of malignant neoplasm of brain; X50.1XXA Overexertion from prolonged static or awkward postures, initial encounter; W01.0XXA Fall on same level from slipping, tripping and stumbling without subsequent striking against object, initial encounter
CPT/HCPCS: 73610